=== PATIENT | male | born 1965 | race Caucasian/White ===

== ENCOUNTER 2022-03-18 09:06 | Emergency (ER) | payer MEDICAID ==
[~2022-03-18] VITALS: Ht 170.2 cm; Wt 78.9 kg
[2022-03-18 09:12] VITALS: BP 152/93
--- NOTE | 2022-03-18 09:14 | NUR ---
AMBULATED TO BED 9
--- NOTE | 2022-03-18 09:17 | NUR ---
DR ALLISON AT BEDSIDE FOR EVAL
[2022-03-18] MEDS ORDERED: predniSONE 20 MG TAB PO ONE (09:30)
[2022-03-18] MEDS ORDERED: ALBUTEROL 0.083% 2.5 MG/3 ML NEBU INH ONE (09:30)
--- NOTE | 2022-03-18 09:55 | NUR ---
56 Y/O MALE BIB SELF C/O ASTHMA EXACERBATION SINCE LAST NIGHT, REPORTS RUNNING OUT OF HIS INHALER. PER PT HE WAS EXPOSED TO DOG DANDER LAST NIGHT AND HAD SOB, RESPIRATIONS EVEN, WHEEZING NOTED UPON EXHALATION. DENIES CHEST PAIN, O2 IN TRIAGE 95%, O2 AT BEDSIDE 96% PMH: ASTHMA NKA
--- NOTE | 2022-03-18 09:55 | NUR ---
RT AT BEDSIDE
--- NOTE | 2022-03-18 09:56 | NUR ---
[facility] GIVEN ORDERED ENCOURAGED PATIENT FOR INTERMITTENT DEEP BREATHING DURINGTHERAPY
[2022-03-18] MEDS ORDERED: INHA1SPA24 MC (10:52)
[2022-03-18] MEDS ORDERED: PRED20TA6 PO (10:52)
[2022-03-18] MEDS ORDERED: ALBU0.0912 IH (10:52)
[2022-03-18] MEDS ORDERED: CETI10TA71 PO (11:12)
[2022-03-18 12:10] VITALS: BP 129/75
--- NOTE | 2022-03-18 12:12 | NUR ---
Patient discharged with v/s stable. Written and verbal after care instructions ABOUT ASTHMA given and explained. Patient alert, oriented and verbalized understanding of instructions. Ambulatory with steady gait. All questions addressed prior to discharge. ID band removed. Patient advised to follow up with PMD. Rx of ALBUTEROL, INHALER, PREDNISONE,BENADRYL given. Patient educated on indication of medication including possible reaction and side effects. Opportunity to ask questions provided and answered.
== END 2022-03-18 12:12 | disposition home or self-care (01) ==
LOC: MED 09:06
DX: J45.901 Unspecified asthma with (acute) exacerbation (principal)
CPT/HCPCS: 94640; 94644; 94760; 99283; J7512; J7613